=== PATIENT | female | born 1935 | race Caucasian/White ===

== ENCOUNTER → 2017-03-24 | Outpatient (CLI) | payer MEDICARE ==
--- NOTE | 2017-03-24 18:04 | PCVCIMAG ---
APPROVED REPORT Study performed: 03/24/2017 13:23:57 EXAM: Comprehensive 2D, Doppler, and color-flow Echocardiogram Status: routine BSA: 1.61 HR: 59 bpm Rhythm: NSR Other Information Study Quality: Adequate Indications Atrial Fibrillation COPD, Lung CA, Pulmonary Hypertension. 2D Dimensions IVSd: 9.95 (7-11mm)LVOT Diam: 19.82 (18-24mm) LVDd: 35.57 mm PWd: 10.61 (7-11mm)Ascending Ao: 31.28 (22-36mm) LVDs: 29.40 (25-40mm) Left Atrium: 31.62 (27-40mm) Aortic Root: 22.31 mm LV Single Plane 2CH: 59.32 %Hanna's LVEF: 37.02 % Volumes Left Atrial Volume (Systole) Single Plane 4CH: 55.72 mLSingle Plane 2CH: 65.41 mL LA ESV Index: 39.00 mL/m2 Aortic Valve AoV Peak Duran.: 1.61 m/s AO Peak Gr.: 10.40 mmHgLVOT Max P.15 mmHg LVOT Max V: 0.73 m/s BRITNEY Vmax: 1.40 cm2 Mitral Valve E/A Ratio: 0.9 MV Decel. Time: 126.58 ms MV E Max Duran.: 0.85 m/s MV A Duran.: 0.91 m/s MV PHT: 36.71 ms IVRT: 124.57 ms TDI E/Lateral E': 12.14E/Medial E': 21.25 Medial E' Duran.: 0.04 m/s Lateral E' Duran.: 0.07 m/s Pulmonary Valve PV Peak Gr.: 1.45 mmHg Tricuspid Valve TR Peak Duran.: 4.88 m/s TR Peak Gr.: 95.08 mmHg Left Ventricle Left ventricle is grossly normal size. LVEF is 50-55%. Right Ventricle Right ventricle is dilated. Atria Left atrium is mildly dilated. Right atrium is dilated. Aortic Valve The aortic valve is not well visualized. Aortic valve leaflets are mildly thickened. No aortic regurgitation is present. No hemodynamically significant valvular aortic stenosis. Mitral Valve Mild mitral annular calcification. Mitral valve is normal in structure. Trace mitral regurgitation. Tricuspid Valve Tricuspid valve is not well visualized. Mild to moderate tricuspid regurgitation. Pulmonary artery pressure is 102mmhg. Pericardium No pericardial effusion. <Conclusion> LVEF is 50-55%. Right ventricle is dilated. Left atrium is mildly dilated. Right atrium is dilated. No aortic regurgitation is present. No hemodynamically significant valvular aortic stenosis. Mild mitral annular calcification. Mitral valve is normal in structure. Trace mitral regurgitation. Tricuspid valve is not well visualized. Mild to moderate tricuspid regurgitation. Pulmonary artery pressure is 102mmhg. No pericardial effusion.
== END | disposition home or self-care (01) ==
LOC: PCVCIMAG 13:04
PROVIDERS: ATTEND Internal Medicine
DX: I08.1 Rheumatic disorders of both mitral and tricuspid valves (principal); J44.9 Chronic obstructive pulmonary disease, unspecified; I10 Essential (primary) hypertension; I48.0 Paroxysmal atrial fibrillation; Z85.118 Personal history of other malignant neoplasm of bronchus and lung
CPT/HCPCS: 93306

== ENCOUNTER → 2017-10-11 | Outpatient (CLI) | payer MEDICARE | END | disposition home or self-care (01) | LOC: PCVCCLINIC 13:17 | DX: I48.0 Paroxysmal atrial fibrillation (principal); I10 Essential (primary) hypertension; J44.9 Chronic obstructive pulmonary disease, unspecified; E78.5 Hyperlipidemia, unspecified; R94.31 Abnormal electrocardiogram [ECG] [EKG] | CPT/HCPCS: 80061; 93005; G0463 ==

== ENCOUNTER → 2018-04-18 | Outpatient (CLI) | payer MEDICARE | END | disposition home or self-care (01) | LOC: PCVCCLINIC 14:33 | PROVIDERS: ATTEND Internal Medicine | DX: I48.0 Paroxysmal atrial fibrillation (principal); I10 Essential (primary) hypertension; E78.5 Hyperlipidemia, unspecified; Z79.4 Long term (current) use of insulin; Z87.891 Personal history of nicotine dependence | CPT/HCPCS: 80061; 93005; G0463 ==

== ENCOUNTER → 2018-10-18 | Outpatient (CLI) | payer MEDICARE | END | disposition home or self-care (01) | LOC: PCVCCLINIC 13:00 | PROVIDERS: ATTEND Internal Medicine | DX: I11.0 Hypertensive heart disease with heart failure (principal); I50.9 Heart failure, unspecified; I48.0 Paroxysmal atrial fibrillation; E78.5 Hyperlipidemia, unspecified; E11.9 Type 2 diabetes mellitus without complications; J44.9 Chronic obstructive pulmonary disease, unspecified; Z88.8 Allergy status to other drugs, medicaments and biological substances | CPT/HCPCS: 36415; 80061; 93005; G0463 ==

== ENCOUNTER → 2019-05-23 | Outpatient (CLI) | payer MEDICARE | END | disposition home or self-care (01) | LOC: PCVCCLINIC 11:00 | PROVIDERS: ATTEND Internal Medicine | DX: I48.0 Paroxysmal atrial fibrillation (principal); I10 Essential (primary) hypertension; J44.9 Chronic obstructive pulmonary disease, unspecified; R00.1 Bradycardia, unspecified; G47.33 Obstructive sleep apnea (adult) (pediatric); E11.9 Type 2 diabetes mellitus without complications; Z88.8 Allergy status to other drugs, medicaments and biological substances; Z79.4 Long term (current) use of insulin; Z79.899 Other long term (current) drug therapy; Z82.49 Family history of ischemic heart disease and other diseases of the circulatory system; Z83.3 Family history of diabetes mellitus; Z87.891 Personal history of nicotine dependence | CPT/HCPCS: 36415; 80061; 93005; G0463 ==